=== PATIENT | female | born 1960 | race Caucasian/White ===

== ENCOUNTER 2018-01-19 13:35 | Emergency (ER) | payer OTHER, SELFPAY ==
[2018-01-19 13:36] VITALS: BP 124/55; PULSE 71; RESP 16; TEMP 36.7; O2SAT 98; BMI 20.5
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
--- NOTE | 2018-01-19 14:48 | ED.DEP ---
ED Disposition - Plan for ED Patient: Disposition: Home or Assisted Living Chief Complaint: Head Injury Instructions: ED Head Injury Closed, ED Contusion Face, ED Sprain Strain Neck Referrals: Ramon Monsivais MD [Primary Care Provider] - 1 Week if not improving Additional Instructions: All sore and swollen areas. Motrin for pain Follow-up with your doctor as needed.
[2018-01-19 15:08] VITALS: BP 121/69; PULSE 69; RESP 16; O2SAT 99
== END 2018-01-19 15:11 | disposition home or self-care (01) ==
LOC: ED 14:58
PROVIDERS: Emergency Provider Emergency Medicine; Family Provider Family Medicine; PCP Family Medicine
DX: S00.531A Contusion of lip, initial encounter (principal); S09.90XA Unspecified injury of head, initial encounter; S16.1XXA Strain of muscle, fascia and tendon at neck level, initial encounter; R11.0 Nausea; W50.0XXA Accidental hit or strike by another person, initial encounter; Y93.9 Activity, unspecified; Y92.9 Unspecified place or not applicable
CPT/HCPCS: 99282

== ENCOUNTER 2018-02-01 14:10 | Emergency (ER) | payer OTHER, SELFPAY ==
--- NOTE | 2018-02-01 14:10 | DT_ITS ---
This patient was seen during an EMR downtime February 01, 2018 - February 08, 2018. This patient may have a combination of paper and electronic documentation or all paper documentation. All documentation is viewable within the e-chart portion of [facility] for each patient visit.
--- NOTE | 2018-03-02 06:05 | ED.DCSUM_ITS ---
- ER Visit Summary Date of Service: 03/02/18 Chief Complaint: Facial swelling History of Present Illness: The patient is a 57 F history of prior angioedema. Denies any trouble swallowing or breathing. This began around 8 AM today. Physical Examination: Well-appearing middle-aged female. No acute distress. Vital signs are stable afebrile. H EENT exam mild facial lip swelling. Tongue is not significantly swollen. No trouble swallowing or breathing. Airways patent. No drooling. No stridor. Neck nontender. Lungs clear to auscultation heart regular rhythm no murmur. Abdomen soft nontender. Moving all 4 extremities. Neurovascularly intact. Test Results: None Emergency Department Course and Treatment: Patient's history and exam are consistent with angioneurotic edema. Given p.o. prednisone. Treatment Plan: Doing well on repeat exam. Swelling is no worse. Will be discharged home on prednisone and follow-up with primary care physician as needed. Disposition: Discharge Impression: Acute recurrent angioneurotic edema This chart was dictated on 03/02/2018. Initial encounter was 02/01/2018 during the hospital computer downtime. This note was generated with [employer] dictation software. It may contain incorrect words, spelling, and punctuation that were not noted in review of the chart prior to signing ED Disposition - Plan for ED Patient: Disposition: Home or Assisted Living Referrals: Ramon Monsivais MD [Primary Care Provider] -
== END 2018-02-01 15:35 | disposition home or self-care (01) ==
LOC: ED 02-03 13:26
PROVIDERS: Emergency Provider Emergency Medicine; Family Provider Family Medicine; PCP Family Medicine
DX: T78.3XXA Angioneurotic edema, initial encounter (principal)
CPT/HCPCS: 99283

== ENCOUNTER 2019-01-26 04:52 | Emergency (ER) | payer OTHER, SELFPAY ==
[2019-01-26 04:53] VITALS: BP 129/62; PULSE 86; RESP 15; TEMP 36.9; O2SAT 97
[2019-01-26] MEDS: MethylPREDNISolone 125 MG/2 ML Vial IV (05:11)
[2019-01-26 05:17] VITALS: TEMP 36.9
--- NOTE | 2019-01-26 05:29 | ED.VISSUMM ---
- ER Visit Summary Date of Service: 01/26/19 Chief Complaint: Facial swelling History of Present Illness: The patient is a 58 F presenting with facial swelling. Patient states this started around 1:30 AM. She states that she has swelling to the right side of her face. She was concerned when she started to have throat tightness and difficulty swallowing. She states on Thursday and Thursday she was having chest tightness which she attributed to congestion and seasonal allergies. She does not believe this is cardiac type chest tightness and refuses work-up including EKG, blood work, chest x-ray. She has a history of hereditary angioedema. She states she has oral steroids at home that she can take but she was concerned about the throat tightness therefore she presented to the ED. Physical Examination: Vitals are stable. Patient is afebrile. Alert no acute distress. HEENT exam right facial swelling, no tongue swelling, no pharyngeal edema Neck is supple. Lungs are clear and equal bilaterally. Heart is regular rate and rhythm. Extremities are unremarkable. Skin is warm and dry. No rash Remainder of exam is unremarkable. Emergency Department Course and Treatment: Patient was given Solu-Medrol IV. She was observed in the ED. her symptoms are starting to improve. She has had no worsening of her symptoms. She is able to swallow without difficulty. She does want not want any type of work-up for the chest tightness that she has had intermittently over the past couple of days. She understands risks of cardiac disease, [place], . She has signed the AGAINST MEDICAL ADVICE form. She is advised if the symptoms worsen she needs to return to the ED. She is given a prescription for prednisone. She is advised to follow-up with her primary care physician. Advised to return to ED if she has any worsening complaints. She will be observed further in the ED and will be discharged if her symptoms continue to improve. Disposition: pending Impression: Recurrent angioedema This note was generated with [employer] dictation software. It may contain incorrect words, spelling, and punctuation that were not noted in review of the chart prior to signing ED Disposition - Plan for ED Patient: Instructions: ED Angioedema Prescriptions: Prednisone [Deltasone] 40 mg PO DAILY #10 tablet Referrals: Ramon Monsivais MD [Primary Care Provider] -
[2019-01-26 06:00] VITALS: BP 118/63; PULSE 72; RESP 16; TEMP 36.8; O2SAT 97
--- NOTE | 2019-01-26 06:15 | ED.DEP ---
ED Disposition - Plan for ED Patient: Instructions: ED Angioedema Prescriptions: Prednisone [Deltasone] 40 mg PO DAILY #10 tablet Referrals: Ramon Monsivais MD [Primary Care Provider] -
[2019-01-26 06:52] VITALS: BP 112/64; PULSE 70; RESP 16; O2SAT 97
[2019-01-26 09:32] VITALS: BP 118/71; PULSE 73; RESP 14; O2SAT 97
== END 2019-01-26 09:33 | disposition home or self-care (01) ==
PROVIDERS: Emergency Provider Emergency Medicine; Family Provider Family Medicine; PCP Family Medicine
DX: D84.1 Defects in the complement system (principal); Z53.21 Procedure and treatment not carried out due to patient leaving prior to being seen by health care provider; R07.89 Other chest pain
CPT/HCPCS: 96374; 99283; A4216

== ENCOUNTER → 2020-06-06 10:59 | Outpatient (CLI) | payer OTHER, SELFPAY ==
[2020-06-05 14:44] VITALS: BMI 22.1
--- NOTE | 2020-06-06 11:09 | EKG12_ITS ---
Test Reason : PREOP Blood Pressure : / mmHG Vent. Rate : 068 BPM Atrial Rate : 068 BPM P-R Int : 134 ms QRS Dur : 078 ms QT Int : 392 ms P-R-T Axes : 066 098 040 degrees QTc Int : 416 ms Normal sinus rhythm Normal ECG Confirmed by NAVNEET GREWAL, MACK ([id number]), legal editor MICHAEL FRANKEL ([id number]) on 06/07/2020 10:08:00 AM Referred By: Darvin Awan Confirmed By:MACK TOTH MD
[2020-06-06 11:23] LABS: Hematocrit 40.1 % (37-47); Hemoglobin 13.2 g/dL (12.0-15.0); Mean Corp Hgb Conc 32.9 g/dL (32-36); Mean Corpuscular Hgb 31.5 pg (27.0-32.0); Mean Corpuscular Volume 95.7 fL (81-99); Mean Platelet Vol. 9.1 fl (6.2-12.0); Platelet Count 213 K/mm3 (150-450); RBC Distribution Width CV 11.9 % (11.6-14.6); RBC Distribution Width SD 41.1 fl (35.1-43.9); Red Blood Count 4.19 M/mm3 (4.2-5.4); White Blood Count 4.7 K/mm3 (4.4-11.0)
[2020-06-06 11:44] LABS: Anion Gap 4 (5-15); BUN 13 mg/dL (7-18); BUN/Creat Ratio 18.4 RATIO (10-20); Calcium,Total 9.1 mg/dL (8.5-10.1); Chloride 107 mmol/L (98-107); Creatinine, Serum 0.71 mg/dL (0.55-1.02); EST Glomerular Filtration Rate 90 mL/min (>60); Est Glom Filt Rate - Afr Amer 109 mL/min (>60); Glucose 90 mg/dL (74-106); Sodium Level 141 mmol/L (136-145)
== END ==
PROVIDERS: PCP Family Medicine; Referring Provider Orthopaedic Surgery; Visit Provider Orthopaedic Surgery
DX: Z01.810 Encounter for preprocedural cardiovascular examination (principal); Z01.818 Encounter for other preprocedural examination
CPT/HCPCS: 36415; 80048; 85027; 93005

== ENCOUNTER 2021-04-24 18:43 | Emergency (ER) | payer MEDICARE, SELFPAY ==
[2021-04-24 18:44] VITALS: BP 141/73; PULSE 81; RESP 18; TEMP 36.4; O2SAT 100; BMI 20.2
[2021-04-24 18:47] VITALS: BP 141/73; PULSE 81; RESP 18; TEMP 36.4; O2SAT 100
[2021-04-24 19:12] VITALS: O2SAT 100
--- NOTE | 2021-04-24 19:59 | EDS_ITS ---
HPI History of Present Illness Chief Complaint: Shortness of Breath Informant: patient Narrative Narrative: Patient started having symptoms of Covid 1 week ago. She had an outpatient rapid antigen Covid test that was positive today, she then had the PCR test run as an outpatient in the office today. She presents requesting monoclonal antibody infusion so that she does not get sicker. She has been having some chest tightness and mild shortness of breath that is better when she does her albuterol inhaler. She had some fevers early on but those are gone. She had a little diarrhea in the beginning but that is gone as well. She is very fatigued, achy all over but otherwise doing okay. She states that beginning of this illness she was put on a Z-Pavel and prednisone. She states she is still taking the prednisone and it is making her feel poorly which she has had with this medication in the past when she has taken it. PFSH PFSH no medical history Home Medications albuterol sulfate 1 - 2 puff INHALATION Q4H PRN PRN 04/24/21 [History Last Taken Unknown] Allergy/AdvReac Type Severity Reaction Status Date / Time amoxicillin trihydrate Allergy Unknown Verified 04/24/21 18:48 [From Augmentin] levofloxacin [From Levaquin] Allergy Angioedema Verified 04/24/21 18:48 Penicillins Allergy Anaphylaxis Verified 04/24/21 18:48 potassium clavulanate Allergy Unknown Verified 04/24/21 18:48 [From Augmentin] Social History Smoking Status: Never smoker [facility] ED Constitutional Constitutional ED: Reports body ache(s), chills, fever(s), malaise and weakness Eyes Eyes: Denies change in vision or diplopia ENT ENT ED: Denies rhinorrhea or sore throat Cardiovascular Cardiovascular: Reports as per HPI and chest pain; Denies palpitations Respiratory/Chest Respiratory/Chest: Reports cough and dyspnea Gastrointestinal Gastrointestinal: Reports diarrhea and taste impaired; Denies abdominal pain or vomiting Genitourinary Genitourinary ED: Denies dysuria or hematuria Musculoskeletal Musculoskeletal: Denies back pain or neck pain Integumentary Denies abscess or rash Neurologic Neurologic: Denies headache(s), paresthesias or weakness Psychiatric Psychiatric: Denies anxiety or suicidal thoughts EXAM Physical Exam Const Vital Signs: 04/24/21 18:44 04/24/21 18:47 04/24/21 19:12 Temperature 97.5 F L 97.5 F L Temperature Source Temporal Temporal Pulse Rate 81 81 Respiratory Rate 18 18 Respiratory Effort Normal Non-Labored Respiratory Depth Normal Respiratory Pattern Normal Blood Pressure 141/73 H 141/73 H Blood Pressure Mean 95 95 Pulse Ox 100 100 Oxygen Delivery Method Room Air Room Air Room Air Positive well nourished and well developed General Appearance ED: well developed and NAD HEENT Reports moist mucous membranes normocephalic and atraumatic Eyes PERRL and EOMs intact bilaterally Neck full ROM and supple Resp normal respiratory effort and clear to auscultation bilaterally Cardio regular rate, regular rhythm and no murmurs GI non-tender and non-distended Auscultation: normoactive bowel sounds Palpation: soft Back/Spine no CVA tenderness General Back: other FROM Extremity normal to inspection General Extremety ED: Negative for edema, pulses abnormal or tenderness General Extremity: Negative for edema or pulses abnormal Neuro oriented x3, CN's II-XII intact bilaterally and no sensory deficits noted Sensorium / Orientation: awake and alert Motor Exam: strength 5/5 throughout Skin no rashes or lesions noted and no wounds MDM MDM MDM Narrative Medical decision making narrative: Patient was reassured. Her pulse ox is 98- 100% throughout her ED stay. She is conversive in full sentences. She has no medical problems, is 60 years old, and her BMI is 20.3. Fortunately, she is doing well and oxygenating well. Unfortunately she meets no criteria for monoclonal antibody infusion given that since it is offered paid for by the government under emergency use authorization, you must meet very strict criteria and she does not meet any of them. Patient was reassured, she has been checking her pulse ox at home, states that like here, it has been doing very well, she was encouraged to continue doing this and advised that she may be getting early Covid pneumonia, but since albuterol is helping her symptoms I do not think she needs to be ruled out for pulmonary embolus or to have a chest x-ray right now especially since she already has antibiotics in place, and advised to come back if her pulse ox goes below 90%. All questions were answered at the bedside she is comfortable with this overall plan. Discharge Plan Triage Chief Complaint: Shortness of Breath ED Provider: Izaiah Iqbal Dx/Rx/DC Orders Clinical Impression: COVID-19 Instructions: Coronavirus Disease 2019 (COVID-19): Caring for Yourself or Others Prescriptions: No Action albuterol sulfate 90 mcg/actuation HFA aerosol inhaler 1 - 2 puff INHALATION Q4H PRN PRN (Reason: Shortness Of Breath) RF: 0 Primary Care Provider: Ramon Monsivais Referrals: Ramon Monsivais MD [Primary Care Provider] - Disposition Disposition: Home, Self Care
== END 2021-04-24 20:12 | disposition home or self-care (01) ==
PROVIDERS: Emergency Provider Emergency Medicine; PCP Family Medicine
DX: U07.1 COVID-19 (principal)
CPT/HCPCS: 99282

== ENCOUNTER → 2021-04-24 | Outpatient (CLI) | payer MEDICARE, SELFPAY | END | disposition home or self-care (01) | PROVIDERS: PCP Family Medicine; Visit Provider Family Medicine | DX: U07.1 COVID-19 (principal) | CPT/HCPCS: 87635; U0005; U0003 ==

== ENCOUNTER 2021-05-13 21:30 | Emergency (ER) | payer MEDICARE, SELFPAY ==
[2021-05-13 21:31] VITALS: BP 135/75; PULSE 98; RESP 15; TEMP 36.9; O2SAT 99; BMI 18.8
--- NOTE | 2021-05-13 23:06 | EDS_ITS ---
HPI History of Present Illness Chief Complaint: Cough Informant: patient Onset/Context/Timing Onset: Days (Onset this weekend) Context: Sudden Onset Timing: Continuous and Waxes and wanes Quality: Subjective fever, chills, nausea, vomiting diarrhea Location: Generalized and GI Current Severity: Mild Maximum Severity: Moderate Worsened by: Nothing Relieved by: Nothing Associated Symptoms Associated Symptoms: Thirst, dry mouth, lightheadedness, diagnosed with Covid 26 days ago Narrative Narrative: Patient is a 60-year-old woman with past medical history of Covid diagnosed 26 days ago. She contacted her PCP who recommended she come to the hospital because of subjective fever, chills, dyspnea, pleuritic chest pain with dyspnea on exertion that started this past weekend. She also complains abdominal pain with nausea, vomiting diarrhea. She does report thirst and dry mouth. Plus minus orthostatic symptoms. She has no other symptoms. She denies history of PE or DVT. Patient states on Thursday she was doing quite well. She states she is dog sitting. She thinks her legs may be sore because of walking the dog she is sitting. She denies any swelling, discoloration or asymmetry. Prior similar symptoms: Yes (Covid) Recent Illness/Hospitalization: Yes PFSH PFSH Home Medications albuterol sulfate 1 - 2 puff INHALATION Q4H PRN PRN 04/24/21 [History Last Taken Unknown] Allergy/AdvReac Type Severity Reaction Status Date / Time amoxicillin trihydrate Allergy Unknown Verified 04/24/21 18:48 [From Augmentin] levofloxacin [From Levaquin] Allergy Angioedema Verified 04/24/21 18:48 Penicillins Allergy Anaphylaxis Verified 04/24/21 18:48 potassium clavulanate Allergy Unknown Verified 04/24/21 18:48 [From Augmentin] Surgical History (Updated 05/13/21 @ 23:28 by Jordyn Everett) History of tonsillectomy Social History (Updated 05/13/21 @ 23:[address] Noel Pandey MD) household members: none Smoking Status: Never smoker alcohol intake: current alcohol intake frequency: holidays/special occasions only substance use type: does not use ROS ROS ED Constitutional Constitutional ED: Reports chills, fever(s) and subjective; Denies sweats or weight loss Eyes Eyes: Reports other Details: Photophobia without neck pain or neck stiffness ; Denies blurry vision, change in vision or diplopia ENT ENT ED: Denies ear pain, rhinorrhea or sore throat Cardiovascular Cardiovascular: Reports chest pain; Denies orthopnea, palpitations, paroxysmal nocturnal dyspnea or racing heartbeat Respiratory/Chest Respiratory/Chest: Reports cough, dyspnea and dyspnea on exertion; Denies orthopnea, paroxysmal nocturnal dyspnea or sputum Gastrointestinal Gastrointestinal: Reports abdominal pain, diarrhea, nausea and vomiting Genitourinary Genitourinary ED: Denies dysuria, hematuria or urinary frequency Musculoskeletal Musculoskeletal: Reports arthralgias and myalgias; Denies back pain or neck pain Integumentary Denies rash Neurologic Neurologic: Reports headache(s); Denies paresthesias or weakness Endocrine Endocrinology: Denies polydipsia or polyuria Allergic/Immunologic Allergic/Immunologic ED: Denies mouth swelling, tongue swelling or urticaria EXAM Physical Exam Const Vital Signs: 05/13/21 21:31 05/13/21 23:27 Temperature 98.5 F Temperature Source Temporal Pulse Rate 98 Respiratory Rate 15 Respiratory Effort Normal Non-Labored Respiratory Depth Normal Respiratory Pattern Normal Blood Pressure 135/75 H Blood Pressure Mean 95 Pulse Ox 99 Oxygen Delivery Method Room Air Positive well nourished and well developed General Appearance ED: well developed, NAD and other Patient is wearing sunglasses due to photophobia. HEENT Reports dry mucous membranes HEENT Narrative: Head is atraumatic normocephalic. Ears are normal. Nares patent. Mouth ED: Yes dry mucous membranes Mouth: dry mucous membranes Eyes PERRL and EOMs intact bilaterally General Eye ED: Negative for pale conjunctiva or scleral icterus Neck no lymphadenopathy, supple and no JVD General: Negative for tenderness Resp normal respiratory effort and clear to auscultation bilaterally Effort and Inspection: Negative for pain with movement Auscultation: wheezes expiratory wheezes (At the end of expiration bilaterally) Cardio regular rate, regular rhythm, S1 normal heart sound, S2 normal heart sound and no murmurs GI normal to inspection, nondistended, normoactive bowel sounds, non-tender and non-distended Palpation: soft Back/Spine no CVA tenderness Cervical Spine: Negative for cervical spine tenderness Thoracic Spine / Upper Back: Negative for thoracic spinal tenderness or paraspinal muscle tenderness Extremity normal to inspection Extremity Narrative: There is no asymmetry, swelling, discoloration, leg vein distention, palpable cords or tenderness along the distribution of the deep venous system. General Extremety ED: Negative for edema or tenderness General Extremity: Negative for edema Neuro oriented x3 and CN's II-XII intact bilaterally Sensorium / Orientation: alert Motor Exam: strength 5/5 throughout Psych mental status grossly normal Skin no rashes or lesions noted, no wounds and skin turgor normal MDM MDM MDM Narrative Medical decision making narrative: Patient may have long-haul her syndrome versus viral illness versus pulmonary embolus. Chest x-ray, appropriate blood work was obtained to assess white count, H&H, renal function and electrolytes specifically potassium because of diarrhea. Clinically she appears dehydrated and 1 L of normal saline was ordered. Lab Data Attestation: I reviewed the patient's lab results. Labs: Laboratory Results - last 24 hr 05/13/21 05/13/21 05/13/21 23:40 23:40 23:40 WBC 3.9 L RBC 3.68 L Hgb 11.4 L Hct 34.8 L MCV 94.6 MCH 31.0 MCHC 32.8 RDW Std Deviation 42.4 RDW Coeff of [place] 12.3 Plt Count 172 MPV 10.5 Immature Gran % (Auto) 0.800 Neut % (Auto) 68.4 Lymph % (Auto) 19.1 [place] % (Auto) 11.1 H Eos % (Auto) 0.3 Baso % (Auto) 0.3 Absolute Neuts (auto) 2.7 Absolute Lymphs (auto) 0.74 L Nucleated RBC % 0 D-Dimer Quant (PE/DVT) 1.47 H* Sodium 140 Potassium 3.3 L Chloride 106 Carbon Dioxide 27.0 Anion Gap 7 BUN 7 Creatinine 0.61 Estim Creat Clear Calc 78.22 Est GFR (MDRD) Af Amer 129 Est GFR (MDRD) Non-Af 107 BUN/Creatinine Ratio 11.5 Glucose 104 Lactic Acid Calcium 8.9 Total Bilirubin 0.50 AST 22 ALT 23 Alkaline Phosphatase 114 Total Protein 7.5 Albumin 3.7 Globulin 3.8 Albumin/Globulin Ratio 1.0 05/13/21 23:40 WBC RBC Hgb Hct MCV MCH MCHC RDW Std Deviation RDW Coeff of [place] Plt Count MPV Immature Gran % (Auto) Neut % (Auto) Lymph % (Auto) [place] % (Auto) Eos % (Auto) Baso % (Auto) Absolute Neuts (auto) Absolute Lymphs (auto) Nucleated RBC % D-Dimer Quant (PE/DVT) Sodium Potassium Chloride Carbon Dioxide Anion Gap BUN Creatinine Estim Creat Clear Calc Est GFR (MDRD) Af Amer Est GFR (MDRD) Non-Af BUN/Creatinine Ratio Glucose Lactic Acid 0.8 Calcium Total Bilirubin AST ALT Alkaline Phosphatase Total Protein Albumin Globulin Albumin/Globulin Ratio Radiography Chest X-Ray - ED: 1 View, Read by ED Physician (Shows troponin by me at 0005. Cardiac silhouette size normal. Mediastinum is normal. Osseous structures are unremarkable. There is minimal chronic changes noted. There is no infiltrate or effusion noted.), Normal, Heart, Mediastinum and Bony Structures Diagnostic Testing: Radiology Impression Chest X-Ray 05/13/21 23:45 IMPRESSION: New finding of a crescentic density overlying the medial left midlung field, possibly representing a focus of atelectasis overlying an emphysematous bulla. No demonstrated pulmonary infiltrates. Electronically Signed: Bharat Randle MD at 0:09 EDT , Service support , Chest CTA 05/14/21 01:23 IMPRESSION: Normal CTA chest examination, without a demonstrated pulmonary embolism, aortic aneurysm, or aortic dissection.. 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 Areas of groundglass opacity in the posterior lungs on the bases as well as a small few small patchy groundglass opacities in the left upper lobe. These may represent atelectasis. Atypical infection is thought to be less likely but is not excluded. No demonstrated dense pulmonary consolidations or pleural effusions. Electronically Signed: Bharat Randle MD at 3:05 EDT , Service support , Treatment and Re-Evaluation Comments:: Patient was informed that the CAT scan reveals no evidence of pulmonary embolus. There is residual infiltrates from Covid. Discharge Plan Triage Chief Complaint: Cough ED Provider: Noel Pandey Dx/Rx/DC Orders Clinical Impression: Pneumonia due to 2019 novel coronavirus, Chest pain, pleuritic, Dyspnea due to COVID-19 Instructions: Coronavirus Disease 2019 (COVID-19): Caring for Yourself or Others Prescriptions: No Action albuterol sulfate 90 mcg/actuation HFA aerosol inhaler 1 - 2 puff INHALATION Q4H PRN PRN (Reason: Shortness Of Breath) RF: 0 Primary Care Provider: Ramon Monsivais Referrals: Ramon Monsivais MD [Primary Care Provider] - Keep Radha appointment Disposition Disposition: Home, Self Care
--- NOTE | 2021-05-13 23:45 | RAD_ITS ---
STUDY: X-RAY CHEST REASON FOR EXAM: Female, 60 years old. cough TECHNIQUE: Single AP portable view of the chest. COMPARISON: 08/20/2015. FINDINGS: There are no confluent pulmonary infiltrates. There is a crescentic density overlying the medial left mid lung field which was not present on previous exams. This may represent an area of atelectasis overlying the emphysematous bulla There is no demonstrated pleural abnormality. Normal size heart. Normal mediastinum and shreyas. Normal visualized aortic arch and descending thoracic aorta. There are no demonstrated acute fractures or destructive bone lesions. There is no demonstrated abnormality of the visualized soft tissue structures of the upper abdomen. RAD/Chest 1 View (Portable) IMPRESSION: New finding of a crescentic density overlying the medial left midlung field, possibly representing a focus of atelectasis overlying an emphysematous bulla. No demonstrated pulmonary infiltrates. Electronically Signed: Bharat Randle MD at 0:09 EDT , Service support ,
[2021-05-13 23:50] LABS: Absolute Lymphocyte Count 0.74 X10^3/uL (0.83-4.51); Absolute Neutrophil Count 2.7 X10^3/uL (2.0-7.7); Basophil# 0.01 X10^3/uL; Basophil% 0.3 % (0-1); Eosinophil# 0.01 X10^3/uL; Eosinophils% 0.3 % (0-5); Hematocrit 34.8 % (37-47); Hemoglobin 11.4 g/dL (12.0-15.0); Lymphocyte # 0.74 X10^3/ul (0.83-4.51); Lymphocyte % 19.1 % (19-41); Mean Corp Hgb Conc 32.8 g/dL (32-36); Mean Corpuscular Volume 94.6 fL (81-99); Mean Platelet Vol. 10.5 fl (6.2-12.0); Monocyte# 0.43 X10^3/uL; Monocyte% 11.1 % (0-10); NRBC Flagged by Analyzer 0 % (0-5); Neutrophil # 2.65 X10^3/uL (2.7-7.7); Neutrophil % 68.4 % (47-70); Platelet Count 172 K/mm3 (150-450); RBC Distribution Width CV 12.3 % (11.6-14.6); RBC Distribution Width SD 42.4 fl (35.1-43.9); Red Blood Count 3.68 M/mm3 (4.2-5.4); White Blood Count 3.9 K/mm3 (4.4-11.0)
[2021-05-14] LABS: AST(SGOT) 22 U/L (15-37); Alanine Aminotransfer ALT/SGPT 23 U/L (13-56); Albumin, Serum 3.7 g/dL (3.2-5.0); Alkaline Phosphatase 114 U/L (45-117); Anion Gap 7 (5-15); BUN 7 mg/dL (7-18); BUN/Creat Ratio 11.5 RATIO (10-20); Calcium,Total 8.9 mg/dL (8.5-10.1); Chloride 106 mmol/L (98-107); Creatinine, Serum 0.61 mg/dL (0.55-1.02); EST Glomerular Filtration Rate 107 mL/min (>60); Est Glom Filt Rate - Afr Amer 129 mL/min (>60); Estimated Creatinine Clearance 78.22 ml/min; Globulin 3.8 g/dL (2.2-4.2); Glucose 104 mg/dL (74-106); Potassium 3.3 mmol/L (3.5-5.1); Protein, Total 7.5 g/dL (6.4-8.2); Sodium Level 140 mmol/L (136-145)
[2021-05-14 00:13] LABS: Lactic Acid 0.8 mmol/L (0.4-1.9)
[2021-05-14 00:31] LABS: D-Dimer Quantitative (DVT/PE) 1.47 FEU/ug/m (0.27-0.49)
--- NOTE | 2021-05-14 01:23 | CT_ITS ---
STUDY: CTA CHEST REASON FOR EXAM: Female, 60 years old. Pleuritic chest pain elevated D-dimer. Cough. RADIATION DOSAGE (If Supplied By Facility): CTDIvol = ( 4.64 ) mGy, DLP = ( 172.77 ) mGycm TECHNIQUE: The examination was performed with the intravenous administration of IV 100mL Isovue-370. Post-processing of the angiographic images was performed, with multiplanar reformation, but without 3D reconstruction. Individualized dose optimization techniques were used for this CT. COMPARISON: Chest x-ray 05/13/2021. FINDINGS: Normal enhancement of the main pulmonary artery and right and left pulmonary arteries. Normal enhancement of the bilateral peripheral pulmonary arteries. There is no demonstrated pulmonary embolism. There is minimal atherosclerotic calcification of the descending thoracic aorta. Otherwise normal thoracic aorta and visualized great vessels. There is no demonstrated aortic dissection. Normal heart and pericardium. Normal mediastinum. Normal hilar regions. Normal visualized trachea and bronchi. The lungs are well expanded. There is a 5 cm emphysematous bulla in the anteromedial left upper lobe with some adjacent compression atelectasis. There are groundglass opacities in the posterior lungs and lung bases, which are probably due to atelectasis. There are a few small groundglass opacities in the lateral periphery of the left upper lobe, which may represent atelectasis or atypical infection.. Residual demonstrated dense pulmonary consolidation. Normal pleura. Normal chest wall structures. There are multilevel degenerative changes of thoracic spine. Normal visualized upper abdomen. CT/CTA Chest W/WO Contrast IMPRESSION: Normal CTA chest examination, without a demonstrated pulmonary embolism, aortic aneurysm, or aortic dissection.. 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 Areas of groundglass opacity in the posterior lungs on the bases as well as a small few small patchy groundglass opacities in the left upper lobe. These may represent atelectasis. Atypical infection is thought to be less likely but is not excluded. No demonstrated dense pulmonary consolidations or pleural effusions. Electronically Signed: Bharat Randle MD at 3:05 EDT , Service support ,
[2021-05-14 04:58] VITALS: RESP 18
[2021-05-14] MEDS: Albuterol 2.5 MG/3 ML VIAL.NEB. INHALATION (04:58)
[2021-05-14 05:38] VITALS: RESP 17
== END 2021-05-14 05:39 | disposition home or self-care (01) ==
PROVIDERS: Emergency Provider Emergency Medicine; PCP Family Medicine
DX: U07.1 COVID-19 (principal); J12.82 Pneumonia due to coronavirus disease 2019
CPT/HCPCS: 71045; 71275; 80053; 83605; 85025; 85379; 90471; 94640; 96360; 99285; J7040; Q9967; A4216

== ENCOUNTER 2022-07-06 02:30 | Emergency (ER) | payer OTHER, SELFPAY ==
[2022-07-06 02:30] VITALS: BP 120/63; PULSE 78; RESP 16; TEMP 36.6; O2SAT 99; BMI 21.8
--- NOTE | 2022-07-06 02:44 | EDS_ITS ---
HPI History of Present Illness Chief Complaint: Complaint Informant: patient Onset/Context/Timing Onset: Yesterday Narrative Narrative: Patient presents with UTI symptoms that started last evening. She reports d ysuria with frequency and hematuria. She has had UTIs in the past with similar symptoms. She does report some mild nausea. No fever or chills. PFSH PFSH Medical History no medical history no medical history Home Medications sulfamethoxazole 800 mg-trimethoprim 160 mg tablet (Bactrim DS) 1 tab PO BID #6 tabs 07/06/22 [Rx Last Taken Unknown] Allergy/AdvReac Type Severity Reaction Status Date / Time amoxicillin trihydrate Allergy Unknown Verified 07/06/22 02:47 [From Augmentin] levofloxacin [From Levaquin] Allergy Angioedema Verified 07/06/22 02:47 Penicillins Allergy Anaphylaxis Verified 07/06/22 02:47 potassium clavulanate Allergy Unknown Verified 07/06/22 02:47 [From Augmentin] Surgical History History of tonsillectomy Social History household members: none Smoking Status: Never smoker alcohol intake: current alcohol intake frequency: holidays/special occasions only substance use type: does not use ROS ROS ED Constitutional Constitutional ED: Denies chills or fever(s) Eyes Eyes: Denies change in vision or discharge from eye(s) ENT ENT ED: Denies discharge from eye(s), rhinorrhea or sore throat Cardiovascular Cardiovascular: Denies chest pain or palpitations Respiratory/Chest Respiratory/Chest: Denies cough or dyspnea Gastrointestinal Gastrointestinal: Reports nausea; Denies abdominal pain, diarrhea or vomiting Genitourinary Genitourinary ED: Reports dysuria, hematuria and urinary frequency Musculoskeletal Musculoskeletal: Denies back pain or extremity pain Integumentary Denies Abrasions or rash Neurologic Neurologic: Denies headache(s) or weakness Psychiatric Psychiatric: Denies anxiety or depression Allergic/Immunologic Allergic/Immunologic ED: Denies lip swelling or urticaria EXAM Physical Exam Const Vital Signs: 07/06/22 02:30 Temperature 98 F Temperature Source Temporal Pulse Rate 78 Respiratory Rate 16 Blood Pressure 120/63 Blood Pressure Mean 82 Pulse Ox 99 Oxygen Delivery Method Room Air Positive well nourished and well developed General Appearance ED: well developed HEENT Reports normocephalic and head/scalp atraumatic Eyes PERRL and EOMs intact bilaterally Neck supple Chest Wall inspection of chest normal and palpation of chest normal Resp normal respiratory effort and clear to auscultation bilaterally Cardio regular rate and regular rhythm GI normal to inspection, nondistended, normoactive bowel sounds Palpation: soft Extremity normal to inspection Neuro oriented x3 and no sensory deficits noted Sensorium / Orientation: alert Motor Exam: strength 5/5 throughout Psych mental status grossly normal Skin no rashes or lesions noted MDM MDM MDM Narrative Medical decision making narrative: Patient was able to provide only a small urine sample. This will be sent for urine culture. Based on her symptoms and history she will be treated with a course of Bactrim. She declines anything for nausea at this time. Discharge Plan Triage Chief Complaint: Complaint ED Provider: Rebecca Larios Dx/Rx/DC Orders Clinical Impression: Cystitis Instructions: ED Cystitis Female Adult Prescriptions: New sulfamethoxazole-trimethoprim [Bactrim DS] 800-160 mg tablet 1 tab PO BID Qty: 6 0RF Primary Care Provider: Ramon Monsivais Referrals: Ramon Monsivais MD [Primary Care Provider] - 3-5 Days if not improving Disposition Disposition: Home, Self Care
[2022-07-06 02:48] VITALS: BP 120/63; PULSE 78; RESP 16; TEMP 36.7; O2SAT 99
[2022-07-06] MEDS: Smz/Tmp Ds Tablet 1 TABLET PO (02:54)
== END 2022-07-06 03:05 | disposition home or self-care (01) ==
LOC: ED 03:03
PROVIDERS: Emergency Provider Emergency Medicine; PCP Family Medicine; Visit Provider Emergency Medicine
DX: N30.90 Cystitis, unspecified without hematuria (principal)
CPT/HCPCS: 87086; 87088; 87186; 99283